=== PATIENT | male | born 1995 | race African-American/Black ===

== ENCOUNTER 2022-08-22 18:14 | Emergency (ER) | payer BC, SELFPAY ==
[2022-08-22] VITALS (21 sets, daily range): BP systolic 101–167; BP diastolic 63–96; PULSE 65–109; RESP 14–26; TEMP 36.6–36.8; O2SAT 99–100
--- NOTE | ~2022-08-22 | XR_ITS ---
EXAM: XR shoulder LT min 2V DATE: 08/22/2022 22:45 HISTORY: post reduction . COMPARISON: Same date at 7:08 PM. FINDINGS/IMPRESSION: Persistent anterior glenohumeral dislocation. The distracted greater tuberosity fracture fragment remains in similar position. Reviewed, dictated and finalized at location [facility].
--- NOTE | ~2022-08-22 | XR_ITS ---
EXAM: XR shoulder LT min 2V DATE: 08/22/2022 19:14 HISTORY: fall, syncope, PAIN WITH LIMITED ROM . COMPARISON: None available. FINDINGS: Normal mineralization. Anterior glenohumeral dislocation. Greater tuberosity fracture with 1.5 cm distraction. No lytic or blastic lesion. Joint spaces are maintained. No erosion or periostea l change. Soft tissues within normal limits. IMPRESSION: Distracted left greater tuberosity fracture. Anterior left glenohumeral dislocation. Reviewed, dictated and finalized at location [facility]. IMPRESSION: Distracted left greater tuberosity fracture. Anterior left glenohum eral dislocation.
--- NOTE | ~2022-08-22 | CT_ITS ---
EXAMINATION: CT brain wo con DATE: 08/22/2022 19:52 INDICATION: fall, frontal hematoma . TECHNIQUE: Computed tomography (CT) of the head was performed without intravenous contrast. The mA wa s adjusted according to patient size. Iterative reconstruction technique was employed. The dose-lengt h product was 983.67 mGy-cm. COMPARISON: None. FINDINGS: No acute intracranial hemorrhage or extra-axial fluid collection. No hydrocephalus, mass, or herniation. No acute ischemic infarct. Increased vascularity along the left sylvian fissure with an enlarged, tortuous, centrally directed v essel, likely an enlarged draining vein. Unremarkable dural venous sinus attenuation. No acute osseous abnormality. Midline frontal scalp contusion. The aerated spaces are clear. IMPRESSION: No acute intracranial process. Left temporoparietal AVM. Recommend nonemergent but timely outpatient brain MRI/MRA and neurosurgical referral. Reviewed, dictated and finalized at [facility].
--- NOTE | 2022-08-22 18:57 | ECG_ITS ---
Measurements Intervals [place] Rate: 74 P: 59 OK: 142 QRS: 79 QRSD: 93 T: 41 QT: 346 QTc: 384 Interpretive Statements SINUS RHYTHM POSSIBLE RIGHT VENTRICULAR CONDUCTION DELAY [RSR (QR) IN V1/V2] EARLY REPOLARIZATION [ST ELEVATION WITH NORMALLY INFLECTED T WAVE] ABNORMAL ECG NO PREVIOUS ECG AVAILABLE FOR COMPARISON Electronically Signed On 08-23-2022 14:35:13 CDT by James Fletcher M.D.
--- NOTE | 2022-08-22 19:00 | ED.DIZZY ---
HPI - Dizziness General Chief Complaint: Syncope <ARMANDO Armas Last Filed: 08/23/22 01:38> Stated Complaint: syncopal <ARMANDO Armas Last Filed: 08/23/22 01:38> Time Seen by Provider: 08/22/22 18:33 <ARMANDO Armas Last Filed: 08/23/22 01:38> Source: patient <ARMANDO Armas Last Filed: 08/23/22 01:38> Mode of arrival: EMS <ARMANDO Armas Last Filed: 08/23/22 01:38> Limitations: no limitations <ARMANDO Armas Last Filed: 08/23/22 01:38> History of Present Illness HPI Narrative: This is a 27-year-old male who presents to the ED via EMS for chief collective syncopal episodes that occurred at 1630 today. Patient states he was at the [employer] and was going to the bathroom when he stood up fast and went to the, felt lightheaded and then passed out. States he remembers coming to on the bathroom floor. Reports some mild headache and a lot of left shoulder pain. Denies any chest pain or shortness of breath. Denies palpitations. States he drinks 2 energy drink prior to going into the movie. States after the episode that he was able to go home with his girlfriend and was taking Tylenol and ibuprofen with minimal relief. States he then took 2 puffs of weed which helped a little bit. Denies fevers, chills, abdominal pain, nausea, vomiting, numbness, weakness. <ARMANDO Armas Last Filed: 08/23/22 01:38> Related Data Allergies/Adverse Reactions: Allergies Allergy/AdvReac Type Severity Reaction Status Date / Time banana AdvReac Diarrhea Verified 08/22/22 18:23 <ARMANDO Armas Last Filed: 08/23/22 01:38> Review of Systems Review of Systems: CONSTITUTIONAL: Denies fever, chills, or sweats. EYES: Denies visual changes, redness, or discharge. ENT: Denies rhinorrhea, congestion, sore throat, or otalgia. CARDIOVASCULAR: Denies chest pain, palpitations, or edema. RESPIRATORY: Denies cough or dyspnea. GASTROINTESTINAL: Denies abdominal pain, nausea, vomiting, or diarrhea. GENITOURINARY: Denies dysuria or hematuria. SKIN: Denies rash or itching. MUSCULOSKELETAL: Denies back pain, joint pain, or myalgia. NEUROLOGIC: See HPI PSYCHIATRIC: Denies anxiety or depression. <Toi Meza PA-C - Last Filed: 08/23/22 01:38> Exam Narrative: GENERAL: Well-appearing, well-nourished, and in no acute distress. HEAD: Normocephalic, atraumatic. EYES: PERRLA and EOMI. ENT: Nares clear, no rhinorrhea or epistaxis. Mucous membranes moist. Oropharynx without tonsillar hypertrophy exudate or other lesions. NECK: Supple. No adenopathy or masses. CHEST: No respiratory distress. Clear to auscultation. No wheezes rales or rhonchi HEART: Regular rate and rhythm. No murmur heard. Normal peripheral pulses. ABDOMEN: Soft, nontender, nondistended, normal active bowel sounds. EXTREMITIES: LUE: Tenderness to the left shoulder. No bruising. Slight deformity. No tenderness to the AC or left clavicle. Marked reduced range of motion due to pain. RUE: Benign. No CT LS spine tenderness or step-offs. Normal range of motion. No edema. Ambulatory. SKIN: Warm, dry, no rash. NEURO: Alert and oriented x3. No focal deficits. Coordination intact. Following commands. PSYCH: Normal mood and affect. <Toi Meza PA-C - Last Filed: 08/23/22 01:38> Course Course Emergency Course: Consult Dr. Cage (ortho): Updated on the status of the 2 unsuccessful attempts to reduce the shoulder. He recommends transfer to a higher level of care for operative procedure and possible reconstruction. <ARMANDO Armas Last Filed: 08/23/22 01:38> RISK PROFESSIONAL/PA Physician Supervision For this patient encounter, I reviewed the RISK PROFESSIONAL or PA documentation, treatment plan, and medical decision making and I had [id number] time with this patient. I performed all aspects of the MDM as documented. 27-year-old male presenting after a syncopal event at the movie theater. Patient disloc
[2022-08-22] MEDS: ONDANSETRON INJ 4 MG/2 ML VIAL IV PUSH (19:22)
[2022-08-22] MEDS: SODIUM CHLORIDE 0.9% IV 1,000 ML 999 ML IV CONT ×2 (19:22→21:33)
[2022-08-22] MEDS: MORPHINE SULFATE (*CRX) 4 MG/ML INJ IV PUSH ×2 (19:22→22:24)
[2022-08-22 19:47] LABS: Basophils Absolute Auto 0.1 K/mm3 (0.0-0.1); Basophils Percent Auto 0.2 % (0.2-1.2); Hematocrit 41.9 % (42.0-52.0); Immature Granulocyte Absolute 0.13 K/mm3 (0.00-0.031); Immature Granulocyte Percent A 0.6 % (0-0.5); Lymphocytes Absolute Auto 0.99 K/mm3 (0.9-3.2); Lymphocytes Percent Auto 4.2 % (18.3-44.2); Mean Corpuscular HGB Conc 35.8 g/dl (32-36); Mean Corpuscular Hemoglobin 29.5 pg (26-34); Mean Corpuscular Volume 82.5 fl (80-100); Mean Platelet Volume 10.2 fl (7.4-10.4); Monocytes Absolute Auto 1.7 K/mm3 (0.1-0.6); Monocytes Percent Auto 7.1 % (2.6-8.5); Neutrophils Absolute Auto 20.6 K/mm3 (1.3-6.7); Neutrophils Percent Auto 87.9 % (45.5-73.1); Platelet Count Result 246 k/mm3 (150-375); Red Blood Count 5.08 M/mm3 (4.6-6.20); Red Cell Distribution Width 13.2 % (11.5-14.5); White Blood Count 23.4 K/mm3 (4.5-10.0)
[2022-08-22 19:56] LABS: Alanine Aminotransferase 20 U/L (6-50); Albumin Level 4.4 g/dL (3.5-5.1); Alkaline Phosphatase 64 U/L (38-126); Anion Gap 8 mmol/L (8-16); Aspartate Amino Transferase 23 U/L (17-59); Bilirubin,Total 1.1 mg/dL (0.2-1.3); Blood Urea Nitrogen 9 mg/dL (9-20); Calcium 8.4 mg/dL (8.4-10.2); Carbon Dioxide 25 mmol/L (22-30); Chloride 104 mmol/L (98-107); Estimated CRCL calculation 125 ml/min; Estimated Glomerular Filt Rate > 60; Glucose 105 mg/dL (65-110); Potassium 3.7 mmol/L (3.4-5.0); Sodium 137 mmol/L (137-145)
[2022-08-22 20:06] LABS: Platelet Estimate Adequate (Adequate); Schistocytes None Seen (NORMAL); Target Cells 2+ (NORMAL)
[2022-08-22] MEDS: fentaNYL CITRATE INJ (*CRX) 100 MCG/2 ML VIAL 50 MCG IV PUSH ×2 (21:32→21:42)
[2022-08-22] MEDS: PROPOFOL IV EMULSION 200 MG/20 ML VIAL 100 MG IV PUSH ×2 (21:44→22:27)
--- NOTE | 2022-08-22 22:37 | PC.NURSE ---
Dr. Hutchison and Toi HARRIS at bedside for closed reduction of left shoulder under moderate sedation from [id number]. pt was sedated with a total of 250mg of propofol which was administered by Dr. Hutchison, 100mcg of fentanyl, and 4mg of morphine. Procedure was unsuccessful and confirmed via x-ray. pt arousable to verbal stimuli. vital signs as noted.
[2022-08-23] MEDS: fentaNYL CITRATE INJ (*CRX) 100 MCG/2 ML VIAL 50 MCG IV PUSH (00:24)
== END 2022-08-23 02:14 | disposition short-term general hospital (02) ==
PROVIDERS: Emergency Provider Physician Assistant
DX: S42.252A Displaced fracture of greater tuberosity of left humerus, initial encounter for closed fracture (principal); S43.015A Anterior dislocation of left humerus, initial encounter; R55 Syncope and collapse; Q28.2 Arteriovenous malformation of cerebral vessels; R94.31 Abnormal electrocardiogram [ECG] [EKG]; W19.XXXA Unspecified fall, initial encounter
CPT/HCPCS: 23665; 36415; 70450; 73030; 80053; 85025; 93005; 96361; 96374; 96375; 96376; 99285; A4565; J2270; J2405; J2704; J3010; J7030